=== PATIENT | male | born 1985 | race Caucasian/White ===

== ENCOUNTER 2020-03-17 09:14 | Emergency (ER) | payer BC, OTHER ==
[2020-03-18 14:12] LABS: SARS-CoV-2 MS2 Positive; SARS-CoV-2 N Gene Negative; SARS-CoV-2 S Gene Negative; SARS-CoV-2 orf1ab Negative
== END 2020-03-17 09:45 | disposition home or self-care (01) ==
LOC: ERS 09:14
DX: Z20.828 Contact with and (suspected) exposure to other viral communicable diseases (principal); I10 Essential (primary) hypertension; Z79.899 Other long term (current) drug therapy
CPT/HCPCS: 87635; 99283; U0003